=== PATIENT | male | born 1960 | race Caucasian/White ===

== ENCOUNTER → 2018-01-10 | Outpatient (CLI) | payer BC ==
--- NOTE | 2018-01-10 18:01 | XR ---
EXAMINATION TYPE: XR shoulder complete LT DATE OF EXAM: 01/10/2018 COMPARISON: NONE HISTORY: Left shoulder pain TECHNIQUE: 3 views FINDINGS: There is mild spurring at the AC joint. I see no fracture nor dislocation. There is mild sp urring at the inferior joint space. There is no significant joint space narrowing. IMPRESSION: Minimal osteoarthritis. No fracture seen.
== END | disposition home or self-care (01) ==
LOC: RADXRMAIN 16:57
PROVIDERS: ATTEND Internal Medicine
DX: M19.012 Primary osteoarthritis, left shoulder (principal)

== ENCOUNTER → 2019-05-15 | Outpatient (CLI) | payer OTHER ==
[2019-05-15 16:13] LABS: HCT 43.7 % (39.0-53.0); HGB 15.5 gm/dL (13.0-17.5); MCH 30.1 pg (25.0-35.0); MCHC 35.5 g/dL (31.0-37.0); MCV 84.7 fL (80.0-100.0); Mean Platelet Volume 8.5; Platelet Count 108 k/uL (150-450); RBC 5.15 m/uL (4.30-5.90); RDW 12.7 % (11.5-15.5); WBC 4.9 k/uL (3.8-10.6)
[2019-05-15 16:20] LABS: ALT 32 U/L (4-49); AST 27 U/L (17-59); African American GFR (CKD) >90 (>60 ml/min/1.73 sqM); Albumin 4.7 g/dL (3.5-5.0); Alkaline Phosphatase 82 U/L (38-126); Anion Gap 9 mmol/L; Blood Urea Nitrogen 15 mg/dL (9-20); Carbon Dioxide 26 mmol/L (22-30); Chloride 105 mmol/L (98-107); Glucose 130 mg/dL (74-99); Non-African American GFR(CKD) 89 (>60 ml/min/1.73 sqM); Potassium 4.1 mmol/L (3.5-5.1); Sodium 140 mmol/L (137-145); Total Bilirubin 0.7 mg/dL (0.2-1.3); Total Protein 6.8 g/dL (6.3-8.2)
[2019-05-15 16:22] LABS: INR 0.9 (<1.2); Prothrombin Time 9.9 sec (9.0-12.0)
[2019-05-15 17:38] LABS: Appearance,Urine Clear (Clear); Bilirubin,Urine Negative (Negative); Blood,Urine Negative (Negative); Color,Urine Yellow; Glucose,Urine (UA) Negative (Negative); Ketones,Urine Negative (Negative); Leukocyte Esterase,Urine Moderate (Negative); Nitrite,Urine Negative (Negative); Protein,Urine Negative (Negative); RBC,Urine <1 /hpf (0-5); Specific Gravity,Urine 1.019 (1.001-1.035); Urobilinogen,Urine <2.0 mg/dL (<2.0); WBC,Urine 1 /hpf (0-5)
== END | disposition home or self-care (01) ==
LOC: LABPAT 15:00
PROVIDERS: ATTEND Orthopaedic Surgery Sports Medicine
DX: Z01.818 Encounter for other preprocedural examination (principal); Z01.812 Encounter for preprocedural laboratory examination; Z51.81 Encounter for therapeutic drug level monitoring
CPT/HCPCS: 80053; 81001; 85027; 85610; 85730; 87070; 93005

== ENCOUNTER 2019-06-04 10:56 | Day surgery (SDC) | payer BC, OTHER ==
[2019-05-29 12:53] VITALS: BMI 30.9
[~2019-06-04 10:56] MED LIST: ACETAMINOPHEN TAB 500 MG TAB PO ONE; DEXAMETHASONE SOD PHOSPHATE 10 MG/ML 1 ML VIAL IV ONE; GABAPENTIN 300 MG CAP PO ONE; HYDROmorphone 0.5 MG/0.5 ML SYRINGE IVP PRN; LIDOCAINE 1% 20 ML VIAL (10MG/ML) FOR IV START INTRADERMA PRN; MELOXICAM 7.5 MG TAB PO ONE; MIDAZOLAM 2 MG/2 ML VIAL IV PRN; ONDANSETRON 4 MG/2 ML VIAL IVP ONE; ROPIVACAINE 246.25 MG, EPINEPHrine 0.5 MG, KETOROLAC 30 MG, cloNIDine HCL/PF 80 MCG, WA... MISCELLANE ONE; TRANEXAMIC ACID 1,000 MG in SODIUM CHLORIDE 0.9% 100 ML IVPB ONE; fentaNYL (PF) 50 MCG/ML 2 ML AMP IVP PRN
[2019-06-04] MEDS: LACTATED RINGERS 1,000 ML IV SCH ×2 (11:37→17:55)
[2019-06-04] MEDS ORDERED: MIDAZOLAM 2 MG/2 ML VIAL IVP ONE (11:45)
[2019-06-04] MEDS ORDERED: fentaNYL (PF) 50 MCG/ML 2 ML AMP IVP ONE (11:46)
[2019-06-04] MEDS ORDERED: PROPOFOL 10 MG/ML 20 ML VIAL IV ONE (12:21)
[2019-06-04] MEDS ORDERED: PHENYLEPHRINE-0.9% NACL SYG 1 MG/10 ML SYRINGE ONE (12:21)
[2019-06-04] MEDS ORDERED: fentaNYL (PF) 50 MCG/ML 2 ML AMP ONE (12:21)
[2019-06-04] MEDS ORDERED: MIDAZOLAM 2 MG/2 ML VIAL ONE (12:21)
[2019-06-04] MEDS ORDERED: LACTATED RINGERS 1,000 ML IV ONE (14:16)
[2019-06-04] MEDS ORDERED: ACETAMINOPHEN TAB 325 MG TAB PO PRN (14:37)
[2019-06-04] MEDS ORDERED: hydrOXYzine PAMOATE 25 MG CAP PO PRN (14:37)
[2019-06-04] MEDS ORDERED: TEMAZEPAM 15 MG CAP PO PRN (14:37)
[2019-06-04] MEDS ORDERED: NA PHOS,M-B/NA PHOS,DI-BA 133 ML ENEMA RECTAL PRN (14:37)
[2019-06-04] MEDS ORDERED: ONDANSETRON 4 MG/2 ML VIAL IVP PRN (14:37)
[2019-06-04] MEDS ORDERED: DIAZEPAM 5 MG TAB PO PRN (14:37)
[2019-06-04] MEDS ORDERED: MAGNESIUM HYDROXIDE 2,400 MG/10 ML CUP PO PRN (14:37)
[2019-06-04] MEDS ORDERED: traMADol 50 MG TAB PO PRN (14:37)
[2019-06-04] MEDS ORDERED: BISACODYL 10 MG SUPP RECTAL PRN (14:37)
[2019-06-04] MEDS ORDERED: HYDROmorphone 0.5 MG/0.5 ML SYRINGE IVP PRN ×2 (14:37)
[2019-06-04] MEDS ORDERED: NALOXONE 0.4 MG/ML 1 ML VIAL IV PRN (14:37)
[2019-06-04] MEDS ORDERED: HYDROmorphone 1 MG/ML 1 ML SYRINGE IVP PRN (14:37)
[2019-06-04] MEDS ORDERED: HYDROcodone/APAP 10-325MG 1 EACH TAB PO PRN (14:37)
--- NOTE | 2019-06-04 14:46 | P.ANPRN ---
Procedure Note - Anesthesia - Nerve Block Performed Right Adductor Canal Infusion Time Out Performed: Yes Date of Procedure: 06/04/19 Procedure Start Time: 11:46 Location of Patient: PreOp Indication: Acute Post-Operative Pain, Requested by Surgeon Specifically requested for management of pain by DrSelvin: Cas Haque Sedation Type: Sedate with meaningful contact maintained Preparation: Sterile Prep Position: Supine Catheter: Indwelling Needle Types: Pajunk Needle Gauge: 18 Ultrasound used to visualize needle placement: Yes Ultrasound used to observe medication spread: Yes Injectate: 0.5% Ropivacaine (see comment for volume) (20 cc) Blood Aspirated: No Pain Paresthesia on Injection Noted: No Resistance on Injection: Normal Image Stored and Saved: Yes Events: Uneventful and Well Tolerated
[2019-06-04] MEDS ORDERED: ROPIVACAINE 0.2%-NS ON-Q PUMP 1,090 MG, EMPTY PAIN BALL 1 EACH MISCELLANE PRN (14:47)
--- NOTE | 2019-06-04 15:12 | XR ---
EXAMINATION TYPE: XR knee limited RT DATE OF EXAM: 06/04/2019 COMPARISON: NONE TECHNIQUE: Two views submitted HISTORY: Post op FINDINGS: There is a prosthetic knee in near anatomic alignment. There is soft tissue edema and emphysema. IMPRESSION: 1. Postoperative change. Appears in near-anatomic alignment
[2019-06-04] MEDS: HYDROcodone/APAP 5-325MG 1 EACH TAB PO PRN (19:07)
--- NOTE | 2019-06-04 20:55 | OP ---
OPERATIVE REPORT DATE OF PROCEDURE: 06/04/2019. SURGEON: Cas Haque M.D. REHAB NURSE: Santi MADISON. PREOPERATIVE DIAGNOSIS: Right knee osteoarthrosis. POSTOPERATIVE DIAGNOSIS: Right knee osteoarthrosis. OPERATION PERFORMED: Right total knee arthroplasty. ANESTHESIA: Spinal with sedation. ESTIMATED BLOOD LOSS: 100 mL. TOURNIQUET: Tourniquet time was 54 minutes at 250 mmHg. COMPLICATIONS: None apparent. DRAINS: None. DISPOSITION: Postanesthesia care unit. INDICATIONS: James is a very pleasant 58-year-old male with longstanding right knee pain. History and physical examination are consist with advanced right knee osteoarthrosis. He has been through fairly significant course of nonoperative treatment up to this point. Further treatment options were discussed and he has decided to go forward with a right total knee arthroplasty. The risks of procedure were discussed with him in detail. These risks included, but were not limited to the risk of infection, nerve damage, bleeding, pain, and a small risk of deep vein thrombosis which could lead to fatal pulmonary emboli. There is also risk of loosening of the implant which could require revision operation. The patient understands these risks. All of his questions were answered to his satisfaction. An appropriate informed consent was obtained. DESCRIPTION OF THE PROCEDURE: Patient identified in the preoperative holding area. Surgical sites marked by both the patient and myself. He was given 2 g of Ancef IV for prophylactic purposes. He was then transferred to the operative suite. He was placed supine on the operative table. A spinal anesthetic was then administered and dosed per the anesthesia without apparent complication. Examination under anesthesia was then performed. He was 2-3 degrees shy of full extension. He had 100 degrees of flexion. The medial collateral ligament, lateral collateral ligament and posterior cruciate ligaments were stable. Tourniquet was then placed high on the right upper thigh well-padded in preparation for surgery. The patient's right lower extremity than prepped and draped in usual sterile fashion. Standard surgical pause undertaken to ensure that we were operating the correct site and that appropriate preoperative antibiotics were given. All staff in the room were in agreement and we proceeded. The outlines of the patella were marked with a surgical pen. A planned 12 cm vertical incision centered over the patella was marked with a surgical pen. Leg was then exsanguinated with an Esmarch dressing. The knee was then flexed and the tourniquet was inflated to 250 mmHg. The total tourniquet time for the procedure was 54 minutes. Incision was then made with a 10 blade scalpel. Dissection was carried down sharply overlying fascia. Great care was taken to minimize the skin flaps. The knee was then exposed using a standard medial parapatellar approach. A small cuff of quadriceps tendon was then left for suturing. He was in quite a bit of varus preoperatively. A standard medial release was then made. The superficial medial collateral ligament dissected off the bone around the posterior aspect of the proximal tibia. The medial meniscus was then excised as well. The lateral meniscus was also released anteriorly. The leg was then externally rotated. The patella was everted. The knee was flexed. The retractors were then placed to protect the collateral ligaments. I then proceeded to remove the infrapatellar fat pad. This was excised sharply tangentially with the fibers of the patellar tendon. I then proceeded to remove the peripheral osteophytes. This is done with a rongeur. I then proceed with distal femoral resection. He did have near full extension. A planned 9 mm resection was then done. The femoral canal was then entered in the midline of the femur approximately 10 mm anterior to the origin of the posterior cruciate ligament. The collin was then advanced down the center of the femur and placed intramedullary. Based on the preoperative radiographs, the angle between the anatomic and mechanical axis of the femur was approximately 4-5 degrees. The valgus angle of the distal femoral cutting guide was then set at 4 degrees for the right knee. This femoral cutting guide was then advanced over the intramedullary collin. This was seated firmly against the femur. I then as mentioned planned to take 9 mm off the distal femur. The cutting block was then secured onto the femur with pins. The jig was removed and the distal femoral cut was made through the slot of the block. The pin was then removed. The distal cutting block was removed. The accuracy of the distal femoral cuts was checked with 2 flat bars. I then proceeded to femoral sizing. Posterior referencing sizing guide was held firmly against the resected distal surface of the femur. Posterior condyles were resting on the posterior plane of the guide. The sizing stylus was then placed on the anterior femur. The size was measured as a size 9. I then assessed for femoral rotation. The plan for 3 degrees of external rotation. Three degrees external rotation was placed onto the jig. These holes were then marked. I then confirmed the rotation by 3 separate methods. This was done using epicondylar axis as well as Whitesides line and posterior referencing. It was deemed that the external rotation was proper. I then went forward with placing the femoral cutting block. This was placed over the previously placed pin holes. The Prasanth wing was then placed onto the anterior slots to ensure that we would not notch the anterior femur with the anterior femoral cut. I then proceed with the anterior femoral cut. This was flush with the anterior cortex of the femur. The posterior cuts were then made followed by the anterior chamfer cut, then the posterior chamfer cut. The cutting block was then removed. Throughout the resection, the collateral ligaments were protected with retractors. I then placed a trial size 9 femur. It appear to fit very nicely medial-lateral and fit flush with the distal end of the femur. The drill holes were then made. I then proceeded with the tibial cut. I planned for cruciate-retaining knee. The guide was placed and set for varus valgus and for slope. The height set for approximate 2 mm resection from the medial tibial plateau which was the lower side. I was happy with the alignment and the amount of resection. The cutting block was then pinned to the proximal tibia. The alignment rods were removed. The proximal tibia was resected with a reciprocating saw. Again this was done with retractors protecting the collateral ligaments as well as the posterior cruciate ligament. I then proceeded to evaluate the flexion extension gaps. A 10 mm block was then placed. The flexion-extension gaps were equal. I then proceeded with resection of posterior osteophytes. He had very extensive posterior osteophytes. This was done using a curved osteotome. This resected the posterior osteophytes and posterior capsule stripping was done off the posterior aspect of the femur at this time. The osteophytes were then removed. I then proceeded with resection of the patella. The thickness of patella was measured using a caliper. The thickness was 24 mm. The thickness of the anticipated patellar dome was taken into account. The resection was then performed and confirmed to be equal in 4 quadrants using a caliper. Approximately 14 mm of bone remained after resection. A 32 x 9 standard patellar trial was then placed. The holes were drilled. The trial was then placed. I then proceeded with sizing tibial plate. A size F tibial plate fit very nicely. I then placed the trial femur in the tibial tray and patellar button. A 10 mm trial insert was also placed. The components fit very nicely. Full extension and flexion. The extension and flexion gaps were equal and stable to both varus and valgus stress. The patella tracked appropriately. The tibial tray rotation was then marked with a Bovie. This was externally rotated properly. I then proceed with tibial preparation. I first drilled the femoral holes and removed the femoral component. The tibial tray was then set for proper external rotation as well as mediolateral placement onto the tibia. It was then pinned into place. I then proceeded with punching the keel. I then decided to proceed with cementing of all of our components. The knee was thoroughly irrigated with sterile saline solution via pulse lavage. The lateral geniculate artery was identified and cauterized. All blood was removed from the bone of the tibia femur and patella with pulse lavage. I then proceed with cementing. Two packs of antibiotic bone cement were prepared on the back table by the medical laboratory technical officer. I then proceeded with cementing the tibia first. The cement was impacted in the keel as well as deeply seated in the bone. A second coat of cement was then placed. The tibia was then impacted into place. Excess cement was removed with Saltillo's and Joker's. I then proceed with cementing the femoral component. The femoral component was also cemented using standard technique. Excess cement was removed. A 10 mm trial insert was then placed into the knee. Brought into full extension with a constant axial load placed until the cement had hardened. Patellar component was then cemented. This held firmly with a compressive device until the cement had dried. When the cement had dried, the knee was taken out of extension. All excess cement was removed from around the prosthesis. I then trialed it with a 10 mm insert. Flexion extension gaps were appropriate. I then trialed with an 11 mm insert. The flexion- extension gaps felt much better. The knee was stable with an 11 mm insert. It came into full extension. I decided to go forward with an 11 mm cross-linked cruciate- retaining tibial insert. Polyethylene was then placed on the tibial tray and locked into place. The knee was then reduced. The knee was again further irrigated with sterile saline solution with antibiotic added. The tourniquet was then deflated. Total tourniquet time for the procedure was 54 minutes at 250 mmHg. Final components were a Cielo Persona size 9 cruciate-retaining femoral component, size F tibial tray, an 11 mm medial congruent cruciate-retaining polyethylene insert and a 32 x 9 patella. I then proceeded with closure. Again, the knee was thoroughly irrigated. The quadriceps tendon and the medial retinaculum were reapproximated with #2 Ethibond suture. The extensor mechanism was then closed with a running #2 Quill suture. Subcutaneous tissues were closed with 2-0 Vicryl interrupted suture. The skin was closed with a running 3-0 Quill suture. Dermabond was applied to the incision. Sterile compressive dressing was then applied. All sponge and needle counts were deemed correct prior to closure. The patient tolerated the procedure without apparent complication. He was transferred to recovery room in stable condition. MMODL / IJN: [id number] /
[2019-06-04] MEDS ORDERED: SENNOSIDES-DOCUSATE SODIUM 1 EACH TAB PO SCH (21:00)
[2019-06-04] MEDS ORDERED: BISOPROLOL 5 MG TAB PO SCH (21:00)
[2019-06-04] MEDS: ASPIRIN 325 MG TAB PO SCH (21:10)
[2019-06-05] MEDS: LACTATED RINGERS 1,000 ML IV SCH ×2 (01:10→04:41)
[2019-06-05] MEDS: HYDROcodone/APAP 5-325MG 1 EACH TAB PO PRN ×2 (01:10→07:54)
[2019-06-05 07:04] LABS: Basophils % (A) 0 %; Eosinophils % (A) 0 %; HCT 38.7 % (39.0-53.0); HGB 13.1 gm/dL (13.0-17.5); Lymphocytes # (A) 1.1 k/uL (1.0-4.8); Lymphocytes % (A) 13 %; MCHC 33.8 g/dL (31.0-37.0); MCV 85.8 fL (80.0-100.0); Mean Platelet Volume 8.3; Monocytes # (A) 0.4 k/uL (0-1.0); Monocytes % (A) 4 %; Neutrophils # (A) 6.9 k/uL (1.3-7.7); Neutrophils % (A) 82 %; RBC 4.51 m/uL (4.30-5.90); RDW 12.3 % (11.5-15.5); WBC 8.5 k/uL (3.8-10.6)
[2019-06-05 07:36] LABS: Platelet Count 99 k/uL (150-450)
[2019-06-05 07:50] VITALS: BP 105/63; PULSE 67; RESP 15; TEMP 97.9
[2019-06-05] MEDS: ASPIRIN 325 MG TAB PO SCH (07:50)
[2019-06-05] MEDS ORDERED: LISINOPRIL 20 MG TAB PO SCH (09:00)
[2019-06-05] MEDS ORDERED: BISOPROLOL 5 MG TAB PO SCH (09:00)
--- NOTE | 2019-06-05 11:09 | P.DS ---
Providers Expected date of discharge: 06/05/19 Attending physician: Cas Haque Consults: 06/04/19 14:37 Consult Physician Routine Consulting Provider: Ankur Mendoza Consult Reason/Comments: post op medical management Do you want consulting provider notified?: Yes Primary care physician: Ankur Mendoza - Discharge Diagnosis(es) (1) Status post total right knee replacement Patient was admitted to the OR on 06/04/2019 to undergo a right total knee arthroplasty. He had failed conservative measures as an outpatient desired to proceed with elective surgery after given informed consent. He underwent the above procedure which he tolerated well without complication. Postoperative hospital remained without complication. On day of discharge he is afebrile, vital signs stable, labs within acceptable ranges, tolerating by mouth meds and diet, voiding without difficulty, positive flatus, denies abdominal pain or calf pain, pain is controlled on oral pain medication and has no new complaints. Wound is benign, neurovascular status is intact, calf is soft and nontender, abdomen soft and nontender. Review of systems is negative for numbness, tingling, fever, chills, chest pain, shortness of breath, nausea, vomiting, dizziness, headaches, slurred speech or other Current Visit: Yes Status: Acute Priority: Medium Procedures: Right TKA Patient Condition at Discharge: Good Plan - Discharge Summary Discharge Rx Participant: Yes New Discharge Prescriptions: New Aspirin 325 mg PO BID #60 tab Docusate [Colace] 100 mg PO BID #60 capsule HYDROcodone/APAP 7.5-325MG [[place] 7.5-325] 1 - 2 each PO Q6HR PRN #56 tab PRN Reason: Pain No Action Lisinopril 20 mg PO QAM Bisoprolol Fumarate [Zebeta] 10 mg PO HS Bisoprolol Fumarate 5 mg PO QAM Discharge Medication List Bisoprolol Fumarate 5 mg PO QAM 05/29/19 [History] Bisoprolol Fumarate [Zebeta] 10 mg PO HS 05/29/19 [History] Lisinopril 20 mg PO QAM 05/29/19 [History] Aspirin 325 mg PO BID #60 tab 06/05/19 [Rx] Docusate [Colace] 100 mg PO BID #60 capsule 06/05/19 [Rx] HYDROcodone/APAP 7.5-325MG [[place] 7.5-325] 1 - 2 each PO Q6HR PRN #56 tab 06/05/19 [Rx] Follow up Appointment(s)/Referral(s): Ankur Mendoza MD [Primary Care Provider] - 1 Week (Office will call you with your follow-up appointment.) Cas Haque MD [STAFF PHYSICIAN] - 06/13/19 1:30 pm Patient Instructions/Handouts: Knee Replacement (DC) Activity/Diet/Wound Care/Special Instructions: Monitor BP at home. Hold Lisinopril if SBP <110 Keep wound clean and dry Take meds as directed Follow-up with Dr. Haque in office Weight bear as tolerated May shower in 3 days if no bleeding Discharge Disposition: HOME WITH HOME HEALTH SERVICES
--- NOTE | 2019-06-05 11:46 | P.PN ---
Progress Note - Text 06/05 712am 58-year-old male status post total knee replacement, patient has an On-Q pump for postop pain control, patient was seen and evaluated for pain control, patient has a VAS of 3. On-Q pump infusion is running at 8 mL an hour, plan to continue On-Q pump infusion
--- NOTE | 2019-06-05 12:59 | P.CONS ---
History of Present Illness - Reason for Consult Consult date: 06/05/19 Medical management - History of Present Illness This is a 58-year-old male patient of Dr. Mendoza with past medical history of hypertension, hyperlipidemia, thrombocytopenia, osteoarthritis. Patient has been brought in under the care of Dr. Haque status post right total knee arthroplasty area patient has had no postop complications. 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 Patient denies any chest pain, nausea, vomiting, diarrhea, constipation, visual changes. He denies any hematuria, no blood in the stools, no tarry stools. He denies any history of blood clots. He is not aware of the reason why he has thrombocytopenia. He has been following with Dr. Wheeler for 2 years and the lower platelet was noticed about one year ago. Regarding hyperlipidemia. Patient has been tried on a statin but developed dizziness lightheadedness and arm pains and only took it for about 2-3 weeks. He has recently lost 30 pounds which she was hoping would help his cholesterol level. Patient states that he has worked well with physical therapy today including the stairs and is anticipating discharge home later today. Blood pressure is running on the lower side and patient has been instructed to monitor his blood pressure at home and if systolic less than 110, hold blood pressure medication. Review of Systems Constitutional: Denies chills, Denies fatigue, Denies fever, Denies lethargy, Denies malaise, Denies poor appetite, Denies weakness Eyes: denies blurred vision, denies pain Ears, nose, mouth and throat: Denies dysphagia, Denies headache, Denies nasal congestion, Denies nasal discharge, Denies sore throat, Denies vertigo Cardiovascular: Denies chest pain, Denies decreased exercise tolerance, Denies dyspnea on exertion, Denies edema, Denies leg edema, Denies shortness of breath, Denies syncope Respiratory: Denies cough, Denies cough with sputum, Denies dyspnea, Denies excessive sputum, Denies hemoptysis, Denies home oxygen, Denies respiratory infections Gastrointestinal: Denies abdominal pain, Denies change in bowel habits, Denies constipation, Denies diarrhea, Denies loss of appetite, Denies melena, Denies nausea, Denies vomiting Genitourinary: Denies dysuria, Denies urinary retention Musculoskeletal: Denies frequent falls, Denies gait dysfunction, Denies muscle weakness, Denies myalgias Integumentary: Denies pruritus, Denies rash Neurological: Denies change in mentation, Denies change in speech, Denies numbness, Denies weakness Psychiatric: Denies anxiety, Denies depression Endocrine: Denies fatigue, Denies weight change Past Medical History Past Medical History: Hyperlipidemia, Hypertension Additional Past Medical History / Comment(s): Chronic thrombocytopenia History of Any Multi-Drug Resistant Organisms: None Reported Additional Past Surgical History / Comment(s): Right total knee arthroplasty, Foot surgery. Dental work. Past Anesthesia/Blood Transfusion Reactions: No Reported Reaction Past Psychological History: No Psychological Hx Reported Smoking Status: Former smoker Past Alcohol Use History: Rare Additional Past Alcohol Use History / Comment(s): Quit smoking 20 yrs ago. Past Drug Use History: None Reported - Past Family History Sister(s) Family Medical History: Cancer Additional Family Medical History / Comment(s): Patient has one sister with history of esophageal cancer. Father Additional Family Medical History / Comment(s): Father in his 70s from emphysema with history of factory work and smoking. Mother Additional Family Medical History / Comment(s): Mother is alive at age 92 with no major medical problems. Brother(s) Additional Family Medical History / Comment(s): Patient's brothers have no major medical problems. Patient has a 24 year old son with no major medical problems. Medications and Allergies Home Medications Medication Instructions Recorded Confirmed Type Bisoprolol Fumarate 5 mg PO QAM 05/29/19 05/29/19 History Bisoprolol Fumarate [Zebeta] 10 mg PO HS 05/29/19 05/29/19 History Lisinopril 20 mg PO QAM 05/29/19 05/29/19 History Aspirin 325 mg PO BID #60 tab 06/05/19 Rx Docusate [Colace] 100 mg PO BID #60 capsule 06/05/19 Rx HYDROcodone/APAP 7.5-325MG [[place] 1 - 2 each PO Q6HR PRN #56 tab 06/05/19 Rx 7.5-325] Allergies Allergy/AdvReac Type Severity Reaction Status Date / Time No Known Allergies Allergy Verified 06/04/19 11:31 Physical Exam Vitals: Vital Signs Temp Pulse Pulse Resp BP Pulse Ox 06/05/19 07:00 97.9 F 67 15 105/63 95 06/05/19 02:10 98.2 F 58 L 17 92/53 96 06/04/19 19:48 97.8 F 81 17 113/67 96 06/04/19 17:15 77 154/72 96 06/04/19 17:00 90 134/90 96 06/04/19 16:45 80 134/76 97 06/04/19 16:30 80 104/66 95 06/04/19 16:15 80 104/73 97 06/04/19 16:00 73 120/73 96 06/04/19 15:45 70 99/66 97 06/04/19 15:30 98.1 F 79 16 114/71 97 06/04/19 15:15 69 16 108/57 98 06/04/19 15:02 70 16 108/58 98 06/04/19 14:45 76 16 104/53 98 06/04/19 14:30 73 16 112/55 95 06/04/19 14:23 98.1 F 83 16 111/56 95 06/04/19 12:05 70 15 116/59 97 06/04/19 11:34 97.4 F L 78 16 120/87 96 Intake and Output 06/04/19 06/05/19 06/05/19 22:59 06:59 14:59 Output Total 275 775 Balance -275 -775 Output: Urine 275 775 Other: # Voids 1 Gen: This is a 58-year-old male. Patient is sitting on the couch fully dressed and ready for discharge. HEENT: Head is atraumatic, normocephalic. Pupils equal, round. Sclerae is anicteric. NECK: Supple. No JVD. No lymphadenopathy. No thyromegaly. LUNGS: Clear to auscultation. No wheezes or rhonchi. No intercostal retractions. HEART: Regular rate and rhythm. No murmur. ABDOMEN: Soft. Bowel sounds are present. No masses. No tenderness. EXTREMITIES: No pedal edema. No calf tenderness. Small dressing in place to the right knee. No breakthrough bleeding or drainage. No significant edema. NEUROLOGICAL: Patient is awake, alert and oriented x3. Cranial nerves 2 through 12 are grossly intact. Results CBC & Chem 7: 06/05/19 06:22 Labs: Abnormal Lab Results - Last 24 Hours (Table) 06/05/19 Range/Units 06:22 Hct 38.7 L (39.0-53.0) % Plt Count 99 L (150-450) k/uL Assessment and Plan Plan: 1. Osteoarthritis right knee status post right total knee arthroplasty. Continue incentive spirometry to reduce incidence of atelectasis and hospital-acquired pneumonia. Continue PT and OT per orthopedics. Continue pain management. 2. Hypertension. Patient has been instructed to hold lisinopril if systolic blood pressure less than 10. Continue bisoprolol. 3. Hyperlipidemia, unable to tolerate statin. 4. Chronic thrombocytopenia, stable. 5. Remote history of tobacco use. Discharge plan: home Impression and plan of care have been directed as dictated by the signing physician. Donna Wiseman nurse practitioner acting as scribe for signing physician.
[2019-06-06] MEDS ORDERED: MULTIVITAMINS, THERA 1 EACH TAB PO SCH (12:00)
== END 2019-06-05 12:41 | disposition home health service (06) ==
LOC: OR 10:56 → EDSTATUS 12:30 → 4SSUR 14:38 → OR 06-05 12:41
PROVIDERS: ATTEND Orthopaedic Surgery Sports Medicine
DX: M17.11 Unilateral primary osteoarthritis, right knee (principal); I10 Essential (primary) hypertension; E78.5 Hyperlipidemia, unspecified; D69.6 Thrombocytopenia, unspecified; Z87.891 Personal history of nicotine dependence; Z98.890 Other specified postprocedural states; Z83.6 Family history of other diseases of the respiratory system; Z80.0 Family history of malignant neoplasm of digestive organs; Z79.899 Other long term (current) drug therapy; Z79.82 Long term (current) use of aspirin; Z79.891 Long term (current) use of opiate analgesic
CPT/HCPCS: 97161; 64448; 76942; 85025; 88300; 73560; 27447; C1776; C1713; J2250; J0171; J1100; J0690 ×2; J2405; J3010; J1885; J2795 ×2; J2370; J2704; J0735

== ENCOUNTER → 2019-06-13 | Outpatient (CLI) | payer OTHER ==
--- NOTE | 2019-06-13 11:36 | US ---
EXAMINATION TYPE: US venous doppler duplex LE RT DATE OF EXAM: 06/13/2019 11:08 AM COMPARISON: NONE CLINICAL HISTORY: M79.604 Pain right leg. Right Knee replacement 06/04/2019 SIDE PERFORMED: Right TECHNIQUE: The lower extremity deep venous system is examined utilizing real time linear array sonog corona with graded compression, doppler sonography and color-flow sonography. VESSELS IMAGED: External Iliac Vein (EIV) Common Femoral Vein Deep Femoral Vein Greater Saphenous Vein * Femoral Vein Popliteal Vein Small Saphenous Vein * Proximal Calf Veins (* superficial vessels) Grayscale, color doppler, spectral doppler imaging performed of the deep veins of the right lower ex tremity. There is normal flow, compressibility, vascular waveforms. Right Leg: Negative for DVT Within the right groin, there is multiple lymph nodes visualized. Largest measuring 2.2 x 0.9 x 1.0 c m IMPRESSION: 1. No sonographic evidence of deep venous thrombosis within the right lower chimney. 2. Multiple superficial lymph nodes within the right groin are upper limits of normal, although not p athologically enlarged at this time.
== END | disposition home or self-care (01) ==
LOC: RADUSWWP 10:34
PROVIDERS: ATTEND Internal Medicine
DX: M79.604 Pain in right leg (principal)